=== PATIENT | male | born 1960 | race Caucasian/White ===

== ENCOUNTER → 2020-10-02 | Outpatient (CLI) | payer BC ==
[2020-10-02 17:42] LABS: Chol/HDL Ratio 2.71; LDL Cholesterol,Calculated 116.4 mg/dL (0.0-131.0); VLDL Calculation 18.6 mg/dL (5.00-40.00)
== END | disposition home or self-care (01) ==
LOC: LABWHC1 10:30
PROVIDERS: ATTEND Internal Medicine Cardiovascular Disease
DX: E78.2 Mixed hyperlipidemia (principal)
CPT/HCPCS: 36415; 80061; 84450; 84460

== ENCOUNTER 2021-10-27 16:37 | Inpatient (IN) | payer BC, MEDICARE, OTHER ==
--- NOTE | 2021-10-27 16:53 | ED ---
Chest Pain HPI - General Stated Complaint: V-Tach Time Seen by Provider: 10/27/21 16:39 - History of Present Illness Initial Comments: This patient is a 61-year-old man who arrives here by ambulance to have evaluation for his defibrillator going off. The patient states it has shocked him total of 7 times today. Patient reports that he was doing reasonably well prior to the start of that. He states that he did have a little bit of lightheadedness earlier in the day with activity. He was not having chest pains, dyspnea, diaphoresis, nausea or vomiting. As the defibrillator Going off he called EMS and they brought him here. He does state that he ran out of his medications approximately 14-15 days ago so he has not taken his cardiac medication. Patient has history of vessel CABG in approximately 2003 he believes in [place]. Currently smoking approximately one pack per day MD Complaint: chest pain -: hour(s) Onset: during rest Pain Location: substernal Pain Radiation: none Severity: severe Quality: sharp Consistency: intermittent Improves With: nothing Worsens With: nothing Treatments Prior to Arrival: none - Related Data Home Medications Medication Instructions Recorded Confirmed Atorvastatin [Lipitor] 40 mg PO DAILY 10/27/21 10/27/21 Metoprolol Succinate (ER) [Toprol 25 mg PO DAILY 10/27/21 10/27/21 Xl] Omeprazole [PriLOSEC] 40 mg PO DAILY 10/27/21 10/27/21 Allergies Allergy/AdvReac Type Severity Reaction Status Date / Time No Known Allergies Allergy Verified 10/27/21 18:31 Review of Systems ROS Statement: Those systems with pertinent positive or pertinent negative responses have been documented in the HPI. ROS Other: All systems not noted in ROS Statement are negative. Constitutional: Denies: fever, chills Respiratory: Denies: cough, dyspnea Cardiovascular: Reports: as per HPI, chest pain. Denies: palpitations, orthopnea, edema, syncope Gastrointestinal: Denies: abdominal pain, nausea, vomiting, melena, hematochezia Genitourinary: Denies: dysuria, hematuria Musculoskeletal: Denies: back pain Skin: Denies: rash Neurological: Denies: headache, weakness EKG Findings - EKG Results: EKG: sinus rhythm (With frequent PVCs, rate 70 bpm) - TX, Pacemaker, Normal: Myocardial infarction: inferior TX (old age indeterminate) General Exam General appearance: alert, in no apparent distress Head exam: Present: atraumatic, normocephalic Eye exam: Present: normal appearance. Absent: scleral icterus, conjunctival injection Neck exam: Present: normal inspection Respiratory exam: Present: normal lung sounds bilaterally. Absent: respiratory distress, wheezes, rales, rhonchi, stridor Cardiovascular Exam: Present: regular rate, normal rhythm, normal heart sounds. Absent: systolic murmur, diastolic murmur, rubs, gallop GI/Abdominal exam: Present: soft. Absent: distended, tenderness, guarding, rebound Extremities exam: Present: normal inspection, normal capillary refill. Absent: pedal edema, calf tenderness Back exam: Present: normal inspection. Absent: CVA tenderness (R), CVA tenderness (L) Neurological exam: Present: alert Skin exam: Present: warm, dry, intact, normal color. Absent: rash Course Vital Signs 10/27/21 10/27/21 10/27/21 16:39 16:44 17:00 Temperature 97.6 F Pulse Rate 60 77 63 Pulse Rate [ Pulse Oximetery ] Respiratory 18 18 18 Rate Blood Pressure 120/84 120/84 136/84 Blood Pressure [Right Arm] O2 Sat by Pulse 92 L 92 L 95 Oximetry 10/27/21 10/27/21 10/27/21 17:10 17:30 21:07 Temperature Pulse Rate 65 59 L 62 Pulse Rate [ Pulse Oximetery ] Respiratory 18 18 15 Rate Blood Pressure 112/81 116/80 127/65 Blood Pressure [Right Arm] O2 Sat by Pulse 94 L 98 Oximetry 10/27/21 10/27/21 22:20 22:50 Temperature 98.1 F Pulse Rate Pulse Rate [ 47 L 49 L Pulse Oximetery ] Respiratory 15 Rate Blood Pressure Blood Pressure 134/67 [Right Arm] O2 Sat by Pulse 97 Oximetry Disposition Clinical Impression: Ventricular tachycardia, Defibrillator discharge Disposition: ADMITTED IP TO THIS HOSP Condition: Serious Is patient prescribed a controlled substance at d/c from ED?: No
[2021-10-27 16:59] LABS: Basophils # (A) 0.1 k/uL (0-0.2); Basophils % (A) 1 %; Eosinophils # (A) 0.2 k/uL (0-0.7); Eosinophils % (A) 3 %; HCT 50.7 % (39.0-53.0); HGB 16.6 gm/dL (13.0-17.5); Lymphocytes # (A) 1.6 k/uL (1.0-4.8); Lymphocytes % (A) 21 %; MCH 34.7 pg (25.0-35.0); MCHC 32.8 g/dL (31.0-37.0); MCV 105.7 fL (80.0-100.0); Macrocytosis Slight; Mean Platelet Volume 7.9; Monocytes # (A) 0.4 k/uL (0-1.0); Monocytes % (A) 6 %; Neutrophils # (A) 5.2 k/uL (1.3-7.7); Neutrophils % (A) 68 %; Platelet Count 241 k/uL (150-450); RDW 12.9 % (11.5-15.5); WBC 7.6 k/uL (3.8-10.6)
--- NOTE | 2021-10-27 17:14 | XR ---
EXAMINATION TYPE: XR chest 1V portable DATE OF EXAM: 10/27/2021 COMPARISON: NONE HISTORY: Dysrhythmia TECHNIQUE: Angled FINDINGS: Heart size is normal. There are sternal wires. There is slight elevated left diaphragm. The re is left axillary pacemaker. There are no hilar masses. There is some spurring at the left shoulder joint. There is no heart failure. IMPRESSION: There is mild elevation of the left diaphragm and minimal subsegmental atelectasis left l ana base. No heart failure seen. There is COPD.
[2021-10-27 17:15] LABS: Partial Thromboplastin Time 22.2 sec (22.0-30.0)
[2021-10-27 17:25] LABS: ALT 22 U/L (4-49); AST 47 U/L (17-59); African American GFR (CKD) >90 (>60 ml/min/1.73 sqM); Albumin 4.4 g/dL (3.5-5.0); Alkaline Phosphatase 39 U/L (38-126); Anion Gap 12 mmol/L; Blood Urea Nitrogen 11 mg/dL (9-20); Calcium 9.6 mg/dL (8.4-10.2); Carbon Dioxide 24 mmol/L (22-30); Chloride 105 mmol/L (98-107); Glucose 97 mg/dL (74-99); Magnesium 1.7 mg/dL (1.6-2.3); Non-African American GFR(CKD) 88 (>60 ml/min/1.73 sqM); Potassium 4.1 mmol/L (3.5-5.1); Sodium 141 mmol/L (137-145); Total Bilirubin 0.5 mg/dL (0.2-1.3); Total Protein 6.8 g/dL (6.3-8.2)
[2021-10-27] MEDS ORDERED: DEXTROSE 5% IN WATER 250 ML with AMIODARONE 300 MG IV ONE (17:30)
[2021-10-27 18:02] LABS: Appearance,Urine Clear (Clear); Bilirubin,Urine Negative (Negative); Blood,Urine Negative (Negative); Color,Urine Yellow; Glucose,Urine (UA) Negative (Negative); Hyaline Casts,Urine 1 /lpf (0-2); Ketones,Urine 1+ (Negative); Leukocyte Esterase,Urine Trace (Negative); Mucus,Urine Occasional /hpf; Nitrite,Urine Negative (Negative); PH, Urine 6.5 (5.0-8.0); Protein,Urine 1+ (Negative); RBC,Urine 1 /hpf (0-5); Specific Gravity,Urine 1.021 (1.001-1.035); Urobilinogen,Urine <2.0 mg/dL (<2.0); WBC,Urine 3 /hpf (0-5)
[2021-10-27] MEDS ORDERED: HEPARIN SODIUM 1,000 UN/ML (10ML VL) IV PRN (19:04)
[2021-10-27] MEDS ORDERED: HEPARIN SODIUM 1,000 UN/ML (10ML VL) IV ONE (19:04)
[2021-10-27] MEDS ORDERED: METOPROLOL TARTRATE 25 MG TAB PO STA (19:10)
[2021-10-27] MEDS ORDERED: MAGNESIUM SULFATE-D5W PMX 1 GM in DEXTROSE/WATER 1 100ML.BAG IVPB ONE (19:10)
[2021-10-27] MEDS ORDERED: NITROGLYCERIN SL TABS 0.4 MG TAB SUBLINGUAL PRN (19:12)
[2021-10-27] MEDS ORDERED: MORPHINE SULFATE 4 MG/ML SYRINGE IV PRN (19:12)
[2021-10-27] MEDS: HEPARIN SOD,PORK IN 0.45% NACL 25,000 UNIT in 0.45% NACL 1 250ML.BAG IV SCH (21:03)
[2021-10-27] MEDS: SODIUM CHLORIDE 0.9% 1,000 ML IV SCH (21:07)
[2021-10-28] MEDS: SODIUM CHLORIDE 0.9% 1,000 ML IV SCH ×2 (03:37→17:00)
[2021-10-28 08:33] LABS: Basophils # (A) 0.1 k/uL (0-0.2); Basophils % (A) 1 %; Eosinophils # (A) 0.2 k/uL (0-0.7); Eosinophils % (A) 3 %; HCT 49.4 % (39.0-53.0); HGB 16.2 gm/dL (13.0-17.5); Lymphocytes # (A) 1.7 k/uL (1.0-4.8); Lymphocytes % (A) 22 %; MCH 34.8 pg (25.0-35.0); MCHC 32.7 g/dL (31.0-37.0); MCV 106.3 fL (80.0-100.0); Macrocytosis Moderate; Mean Platelet Volume 8.3; Monocytes # (A) 0.5 k/uL (0-1.0); Monocytes % (A) 7 %; Neutrophils # (A) 5.1 k/uL (1.3-7.7); Neutrophils % (A) 66 %; Platelet Count 221 k/uL (150-450); RBC 4.65 m/uL (4.30-5.90); RDW 12.7 % (11.5-15.5); WBC 7.8 k/uL (3.8-10.6)
[2021-10-28 08:57] LABS: INR 0.9 (<1.2); Prothrombin Time 10.4 sec (9.0-12.0)
[2021-10-28] MEDS ORDERED: METOPROLOL TARTRATE 25 MG TAB PO SCH (09:00)
[2021-10-28] MEDS ORDERED: ASPIRIN 325 MG TAB PO SCH (09:00)
[2021-10-28] MEDS: ATORVASTATIN 80 MG TAB PO SCH (09:43)
--- NOTE | 2021-10-28 10:48 | P.CRDCN ---
History of Present Illness History of present illness: HISTORY OF PRESENTING ILLNESS This is a pleasant 61-year-old male past medical history significant for coronary artery disease s/p CABG in 2005 ([place]O to LAD, VG to obtuse marginal branch of the LCx, VG to distal RCA/PDA), V fib arrest s/p ICD implantation in 2019, hypertension, dyslipidemia, ischemic cardiomyopathy, congestive heart failure . He follows in the office with Dr. So. We have been asked to see in consultation for tachyarrhythmia. Patient presents emergency department after multiple ICD shocks. Patient states he is moving to [place] and was packing at home. He was sitting down and all of a sudden felt shock in his chest. He did endorse some lightheadedness in the morning. Prior to the shock he denies any chest pain, palpitations, shortness of breath, lightheadedness or dizziness. He states he felt his ICD shock him multiple times. He denies any recent changes to his medications or medical history. He continues to smoke 1PPD. DIAGNOSTICS * EKG reveals sinus rhythm, heart rate 70, PVCs, T-wave inversions in inferior leads. Prior EKG in the office with similar findings. * Telemetry tracings indicate sinus rhythm with episodes of nonsustained ventricular tachycardia. * Chest xray COPD, mild elevation of the left diaphragm. * Most recent echocardiogram in the office here 10/2020 with EF of 25%, inferior AK, severely dilated left atrium, moderate mitral regurgitation, moderate tricuspid regurgitation * Laboratory reviewed, CBC unremarkable, troponin 3, 15, 13.9, sodium 141, potassium 4.1, BUN 11, serum creatinine 0.9 * Cardiac catheterization 04/2019 revealed patent [place]O to LAD, patent vein graft obtuse marginal branch and left circumflex artery and patent vein graft to distal RCA/PDA, severely reduced left ventricular systolic function with an EF of 30% stenosis with akinesis of the basal. Segment. Mild distal stenosis of the left main coronary artery 2030% stenosis * Current home cardiac medications include metoprolol succinate 20 mg daily, vane rvastatin 40 mg daily. REVIEW OF SYSTEMS At the time of my exam: CONSTITUTIONAL: Denies fever or chills. CARDIOVASCULAR: Denies chest pain, shortness of breath, orthopnea, PND or palpitations. RESPIRATORY: Denies cough. GASTROINTESTINAL: Denies abdominal pain, diarrhea, constipation, nausea or vo miting. MUSCULOSKELETAL: Denies myalgias. NEUROLOGIC: Denies numbness, tingling, headacbe or weakness. ENDOCRINE: Denies fatigue, weight change, polydipsia or polyurina. GENITOURINARY: Denies burning, hematuria or urgency with micturation. HEMATOLOGIC: Denies history of anemia or bleeding. PHYSICAL EXAMINATION Blood pressure 118/67, heart rate 53, afebrile, oxygen saturation 96% on 2 L nasal cannula CONSTITUTIONAL: No apparent distress. HEENT: Head is normocephalic. Pupils are equal, round. Sclerae anicteric. Mucous membranes of the mouth are moist. No JVD. No carotid bruit. CHEST EXAMINATION: Lungs are clear to auscultation. No chest wall tenderness is noted on palpation or with deep breathing. HEART EXAMINATION: Regular rate and rhythm. S1, S2 heard. Systolic murmur at base. ABDOMEN: Soft, nontender. Positive bowel sounds. EXTREMITIES: 2+ peripheral pulses, no lower extremity edema and no calf tenderness. NEUROLOGIC EXAMINATION: Patient is awake, alert and oriented x3. ASSESSMENT Multiple ICD shocks NSVT NSTEMI Coronary artery disease s/p CABG in 2005 ([place] to LAD, VG to obtuse marginal branch of the LCx, VG to distal RCA/PDA) History of V fib arrest s/p ICD implantation in 2019 Hypertension Dyslipidemia Ischemic cardiomyopathy Chronic congestive heart failure with reduced ejection fraction PLAN Interrogate patient's device IV heparin Aspirin, statin, beta radha Obtain 2D echocardiogram and doppler study to assess cardiac structure and function. NPO after midnight for possible cardiac catheterization tomorrow. I have discussed the risks, benefits and alternative therapies for the above- mentioned procedure and for both sedation/analgesia as well as necessary blood product administration, if indicated, as they pertain to this patient. The patient has indicated understanding and acceptance of the risks and procedures discussed. Questions have been answered appropriately and he is agreeable to move forward with the above-stated procedure. Further recommendations and clinical course Nurse practitioner note has been reviewed by physician. Signing provider agrees with the documented findings, assessment, and plan of care. Past Medical History Past Medical History: Coronary Artery Disease (CAD), Hyperlipidemia, Hypertension, Myocardial Infarction (AK) Last Myocardial Infarction Date:: 2019 History of Any Multi-Drug Resistant Organisms: None Reported Past Surgical History: AICD, Coronary Bypass/CABG, Hernia Repair, Pacemaker Additional Past Surgical History / Comment(s): triple bypass Past Anesthesia/Blood Transfusion Reactions: No Reported Reaction Type of Cardiac Device: Permanent Pacemaker, AICD Device Placement Date:: 2019 Past Psychological History: No Psychological Hx Reported Smoking Status: Current every day smoker Past Alcohol Use History: None Reported Past Drug Use History: None Reported Medications and Allergies Home Medications Medication Instructions Recorded Confirmed Type Atorvastatin [Lipitor] 40 mg PO DAILY 10/27/21 10/27/21 History Metoprolol Succinate (ER) [Toprol 25 mg PO DAILY 10/27/21 10/27/21 History Xl] Omeprazole [PriLOSEC] 40 mg PO DAILY 10/27/21 10/27/21 History Allergies Allergy/AdvReac Type Severity Reaction Status Date / Time No Known Allergies Allergy Verified 10/27/21 18:31 Physical Exam Vitals: Vital Signs Temp Pulse Pulse Resp BP BP Pulse Ox 10/28/21 04:00 18 114/78 96 10/28/21 01:55 48 L 10/27/21 23:10 97.9 F 51 L 16 111/74 98 10/27/21 22:50 49 L 10/27/21 22:20 98.1 F 47 L 15 134/67 97 10/27/21 21:07 62 15 127/65 98 10/27/21 17:30 59 L 18 116/80 10/27/21 17:10 65 18 112/81 94 L 10/27/21 17:00 63 18 136/84 95 10/27/21 16:44 77 18 120/84 92 L 10/27/21 16:39 97.6 F 60 18 120/84 92 L Intake and Output 10/27/21 10/28/21 10/28/21 22:59 06:59 14:59 Intake Total 222.358 Balance 222.358 Intake: Intake, IV Titration 222.358 Amount Heparin Sod,Pork in 0.45% 47.358 NaCl 25,000 unit In 0.45 % NaCl 1 250ml.bag @ 12 UNITS/KG/HR 7.893 mls/hr IV .Q24H [facility] Rx#: [id number] Magnesium Sulfate-D5w Pmx 100 1 gm In Dextrose/Water 1 100ml.bag @ 100 mls/hr IVPB ONCE ONE Rx#: [id number] Sodium Chloride 0.9% 1, 75 000 ml @ 75 mls/hr IV . [id number] [facility] Rx#:[id number] Oral 0 Other: # Voids 1 Weight 65.771 kg Results 10/28/21 07:31 10/27/21 16:52 Cardiac Enzymes 10/27/21 10/27/21 10/27/21 Range/Units 16:52 16:52 21:10 AST 47 (17-59) U/L Troponin I 3.060 H* 15.500 H* (0.000-0.034) ng/mL 10/28/21 Range/Units 00:45 AST (17-59) U/L Troponin I 13.900 H* (0.000-0.034) ng/mL Coagulation 10/27/21 10/28/21 Range/Units 16:52 00:45 PT 11.0 (9.0-12.0) sec APTT 22.2 44.4 H (22.0-30.0) sec CBC 10/27/21 Range/Units 16:52 WBC 7.6 (3.8-10.6) k/uL RBC 4.80 (4.30-5.90) m/uL Hgb 16.6 (13.0-17.5) gm/dL Hct 50.7 (39.0-53.0) % Plt Count 241 (150-450) k/uL Comprehensive Metabolic Panel 10/27/21 Range/Units 16:52 Sodium 141 (137-145) mmol/L Potassium 4.1 (3.5-5.1) mmol/L Chloride 105 (98-107) mmol/L Carbon Dioxide 24 (22-30) mmol/L BUN 11 (9-20) mg/dL Creatinine 0.93 (0.66-1.25) mg/dL Glucose 97 (74-99) mg/dL Calcium 9.6 (8.4-10.2) mg/dL AST 47 (17-59) U/L ALT 22 (4-49) U/L Alkaline Phosphatase 39 (38-126) U/L Total Protein 6.8 (6.3-8.2) g/dL Albumin 4.4 (3.5-5.0) g/dL Current Medications Generic Name Dose Route Start Last Admin Trade Name Freq PRN Reason Stop Dose Admin Aspirin 325 mg 10/28/21 09:00 Aspirin 325 Mg Tab PO DAILY SANTANA Heparin Sodium (Porcine) 0 unit 10/27/21 19:04 Heparin Sodium 1,000 Un/Ml (10ml Vl) IV PER PROTOCOL PRN Low PTT Protocol Heparin Sodium/Sodium Chloride 250 mls @ 7.893 mls/hr 10/27/21 19:15 10/27/21 21:03 25,000 unit/ Sodium Chloride IV 12 units/kg/hr .Q24H SANTANA 7.893 mls/hr Administration Protocol 12 UNITS/KG/HR Sodium Chloride 1,000 mls @ 75 mls/hr 10/27/21 19:15 10/28/21 03:37 Saline 0.9% IV 75 mls/hr .[id number] SANTANA Administration Metoprolol Tartrate 25 mg 10/28/21 09:00 Metoprolol Tartrate 25 Mg Tab PO BID [facility] Morphine Sulfate 4 mg 10/27/21 19:12 Morphine Sulfate 4 Mg/Ml Syringe IV Q5M PRN Chest Pain Nitroglycerin 0.4 mg 10/27/21 19:12 Nitroglycerin Sl Tabs 0.4 Mg Tab SUBLINGUAL Q5M PRN Chest Pain Intake and Output 10/27/21 10/28/21 10/28/21 22:59 06:59 14:59 Intake Total 222.358 Balance 222.358 Intake: Intake, IV Titration 222.358 Amount Heparin Sod,Pork in 0.45% 47.358 NaCl 25,000 unit In 0.45 % NaCl 1 250ml.bag @ 12 UNITS/KG/HR 7.893 mls/hr IV .Q24H [facility] Rx#: [id number] Magnesium Sulfate-D5w Pmx 100 1 gm In Dextrose/Water 1 100ml.bag @ 100 mls/hr IVPB ONCE ONE Rx#: [id number] Sodium Chloride 0.9% 1, 75 000 ml @ 75 mls/hr IV . [id number] [facility] Rx#:[id number] Oral 0 Other: # Voids 1 Weight 65.771 kg 10/27/21 16:52 10/27/21 16:52
[2021-10-28 10:53] LABS: Chol/HDL Ratio 3.88 Ratio; LDL Cholesterol,Calculated 107.9 mg/dL (0.0-131.0)
[2021-10-28] MEDS ORDERED: ACETAMINOPHEN TAB 325 MG TAB PO PRN (10:59)
--- NOTE | 2021-10-28 11:10 | P.HPIM ---
History of Present Illness H&P Date: 10/28/21 Chief Complaint: AICD firing History of present illness; Patient is a pleasant 61-year-old male past medical history significant for coronary artery disease s/p CABG in 2005 ([place] to LAD, VG to obtuse marginal branch of the LCx, VG to distal RCA/PDA), V fib arrest s/p ICD implantation in 2019, hypertension, dyslipidemia, ischemic cardiomyopathy, congestive heart failure who presented to the ER because of multiple AICD shocks since yesterday. Patient was in usual state of health yesterday morning when he noticed that his AICD fired after breakfast, it was followed by multiple frequent shocks. During these episodes patient did not have any lightheadedness or dizziness, denied any chest pain or shortness of breath. In total he had 5 shocks followed by another 2 shocks in the afternoon. At that time his friend called EMS and he was terry t to the ER of [facility]. Initial troponin was elevated at 3.060, rest of blood work was normal, chest x-ray did not show any acute cardiac process. Patient was started on heparin and was admitted to hospitalist service with cardiology consult. REVIEW OF SYSTEMS: CONSTITUTIONAL: No fever, no malaise, no fatigue. HEENT: No recent visual problems or hearing problems. Denied any sore throat. CARDIOVASCULAR: No chest pain, orthopnea, PND, no palpitations, no syncope. PULMONARY: No shortness of breath, no cough, no hemoptysis. GASTROINTESTINAL: No diarrhea, no nausea, no vomiting, no abdominal pain. NEUROLOGICAL: No headaches, no weakness, no numbness. HEMATOLOGICAL: Denies any bleeding or petechiae. GENITOURINARY: Denies any burning micturition, frequency, or urgency. MUSCULOSKELETAL/RHEUMATOLOGICAL: Denies any joint pain, swelling, or any muscle pain. ENDOCRINE: Denies any polyuria or polydipsia. The rest of the 14-point review of systems is negative. PHYSICAL EXAMINATION: GENERAL: The patient is alert and oriented x3, not in any acute distress. Well developed, well nourished. HEENT: Pupils are round and equally reacting to light. EOMI. No scleral icterus. No conjunctival pallor. Normocephalic, atraumatic. No pharyngeal erythema. No thyromegaly. CARDIOVASCULAR: S1 and S2 present. No murmurs, rubs, or gallops. PULMONARY: Chest is clear to auscultation, no wheezing or crackles. ABDOMEN: Soft, nontender, nondistended, normoactive bowel sounds. No palpable organomegaly. MUSCULOSKELETAL: No joint swelling or deformity. EXTREMITIES: No cyanosis, clubbing, or pedal edema. NEUROLOGICAL: Gross neurological examination did not reveal any focal deficits. SKIN: No rashes. Assessment Multiple AICD shocks NSTEMI Coronary artery disease s/p CABG in 2005 ([place] to LAD, VG to obtuse marginal branch of the LCx, VG to distal RCA/PDA) History of V fib arrest s/p ICD implantation in 2019 Hypertension Dyslipidemia Ischemic cardiomyopathy Chronic congestive heart failure with reduced ejection fraction Plan; Monitor electrolytes. Moderate renal functions Continue to trend troponins. Continue pharmacy to dose heparin 2-D echo ordered Resume home meds Cardiology consulted, they evaluated the patient, plan is for the patient to undergo cardiac cath tomorrow, nothing by mouth after midnight Continue aspirin, Lipitor, Toprol AICD interrogation ordered DVT prophylaxis: Pharmacy dose heparin Full code Past Medical History Past Medical History: Coronary Artery Disease (CAD), Hyperlipidemia, Hypertension, Myocardial Infarction ([place]) Last Myocardial Infarction Date:: 2019 History of Any Multi-Drug Resistant Organisms: None Reported Past Surgical History: AICD, Coronary Bypass/CABG, Hernia Repair, Pacemaker Additional Past Surgical History / Comment(s): triple bypass Past Anesthesia/Blood Transfusion Reactions: No Reported Reaction Type of Cardiac Device: Permanent Pacemaker, AICD Device Placement Date:: 2019 Past Psychological History: No Psychological Hx Reported Smoking Status: Current every day smoker Past Alcohol Use History: None Reported Past Drug Use History: None Reported Medications and Allergies Home Medications Medication Instructions Recorded Confirmed Type Atorvastatin [Lipitor] 40 mg PO DAILY 10/27/21 10/27/21 History Metoprolol Succinate (ER) [Toprol 25 mg PO DAILY 10/27/21 10/27/21 History Xl] Omeprazole [PriLOSEC] 40 mg PO DAILY 10/27/21 10/27/21 History Allergies Allergy/AdvReac Type Severity Reaction Status Date / Time No Known Allergies Allergy Verified 10/27/21 18:31 Physical Exam Vitals: Vital Signs Temp Pulse Pulse Resp BP BP Pulse Ox 10/28/21 08:14 44 L 10/28/21 08:10 47 L 10/28/21 07:49 97.7 F 53 L 16 118/67 10/28/21 04:00 18 114/78 96 10/28/21 01:55 48 L 10/27/21 23:10 97.9 F 51 L 16 111/74 98 10/27/21 22:50 49 L 10/27/21 22:20 98.1 F 47 L 15 134/67 97 10/27/21 21:07 62 15 127/65 98 10/27/21 17:30 59 L 18 116/80 10/27/21 17:10 65 18 112/81 94 L 10/27/21 17:00 63 18 136/84 95 10/27/21 16:44 77 18 120/84 92 L 10/27/21 16:39 97.6 F 60 18 120/84 92 L Intake and Output 10/27/21 10/28/21 10/28/21 22:59 06:59 14:59 Intake Total 222.358 Balance 222.358 Intake: Intake, IV Titration 222.358 Amount Heparin Sod,Pork in 0.45% 47.358 NaCl 25,000 unit In 0.45 % NaCl 1 250ml.bag @ 12 UNITS/KG/HR 7.893 mls/hr IV .Q24H [facility] Rx#: [id number] Magnesium Sulfate-D5w Pmx 100 1 gm In Dextrose/Water 1 100ml.bag @ 100 mls/hr IVPB ONCE ONE Rx#: [id number] Sodium Chloride 0.9% 1, 75 000 ml @ 75 mls/hr IV . [id number] [facility] Rx#:[id number] Oral 0 Other: Voiding Method Toilet # Voids 1 Weight 65.771 kg Results CBC & Chem 7: 10/28/21 07:31 10/27/21 16:52 Labs: Abnormal Lab Results - Last 24 Hours (Table) 10/27/21 10/27/21 10/27/21 Range/Units 16:52 16:52 16:52 MCV 105.7 H (80.0-100.0) fL APTT (22.0-30.0) sec Troponin I 3.060 H* (0.000-0.034) ng/mL Urine Protein 1+ H (Negative) Urine Ketones 1+ H (Negative) Ur Leukocyte Esterase Trace H (Negative) Urine Mucus Occasional H (None) /hpf 09/13/22 09/14/22 09/14/22 Range/Units 21:10 00:45 00:45 MCV (80.0-100.0) fL APTT 44.4 H (22.0-30.0) sec Troponin I 15.500 H* 13.900 H* (0.000-0.034) ng/mL Urine Protein (Negative) Urine Ketones (Negative) Ur Leukocyte Esterase (Negative) Urine Mucus (None) /hpf 10/28/21 Range/Units 07:31 MCV 106.3 H (80.0-100.0) fL APTT (22.0-30.0) sec Troponin I (0.000-0.034) ng/mL Urine Protein (Negative) Urine Ketones (Negative) Ur Leukocyte Esterase (Negative) Urine Mucus (None) /hpf Thrombosis Risk Factor Assmnt - Choose All That Apply Any of the Below Risk Factors Present?: No Each Risk Factor Represents 2 Points: Age 61-74 years Other congenital or acquired thrombophilia - If yes, enter type in comment: No Thrombosis Risk Factor Assessment Total Risk Factor Score: 2 Thrombosis Risk Factor Assessment Level: Low Risk
[2021-10-28] MEDS: METOPROLOL SUCCINATE (ER) 25 MG TAB.ER.24H PO SCH (12:37)
[2021-10-28] MEDS: PANTOPRAZOLE 40 MG TABLET PO SCH (12:37)
--- NOTE | 2021-10-28 14:32 | CA ---
Transthoracic Echo Report Name: Mikal Barros Age: 61 Gender: M : 1960 Exam Date: 10/28/2021 09:04 Exam Location: [facility] Ht (in): 66 Wt (lb): 145 Ordering Physician: Brenda Dinh Attending/Referring Phys: Certified Registered Nurse Anesthetist [address] RDCS Procedure CPT: Indications: elevated troponin, Defib shocks, NSTEMI Cardiac Hx: Technical Quality: Good Contrast 1: Total Dose (mL): Contrast 2: Total Dose (mL): MEASUREMENTS (Male / Female) Normal Values 2D ECHO LV Diastolic Diameter PLAX 5.7 cm 4.2 - 5.9 / 3.9 - 5.3 cm LV Systolic Diameter PLAX 5.1 cm IVS Diastolic Thickness 1.1 cm 0.6 - 1.0 / 0.6 - 0.9 cm LVPW Diastolic Thickness 1.0 cm 0.6 - 1.0 / 0.6 - 0.9 cm LV Relative Wall Thickness 0.4 RV Internal Dim ED PLAX 2.9 cm LA Systolic Diameter LX 4.2 cm 3.0 - 4.0 / 2.7 - 3.8 cm LA Volume 69.1 cm??? 18 - 58 / 22 - 52 cm??? M-MODE Aortic Root Diameter MM 3.3 cm MV E Point Septal Separation 1.6 cm AV Cusp Separation MM 1.9 cm DOPPLER AV Peak Velocity 143.2 cm/s AV Peak Gradient 8.2 mmHg MV Area PHT 1.9 cm??? Mitral E Point Velocity 48.6 cm/s Mitral A Point Velocity 35.7 cm/s Mitral E to A Ratio 1.4 MV Deceleration Time 397.0 ms MV E' Velocity 6.2 cm/s Mitral E to MV E' Ratio 7.8 TR Peak Velocity 262.9 cm/s TR Peak Gradient 27.6 mmHg Right Ventricular Systolic Press 31.4 mmHg FINDINGS Left Ventricle Left ventricular ejection fraction is estimated at 20-25 %. Left ventricular cavity size normal. Left ventricular wall thickness normal. Moderately reduced global left ventricular systolic function. Inferior basel wall and basel infero septal wall hypokinesis Right Ventricle Normal right ventricular size and function. Right Atrium Normal right atrial size. Left Atrium Mildly increased left atrial diameter. Moderately increased left atrial volume. No evidence for an atrial septal defect. Mitral Valve Mitral valve thickened. Trace to mild mitral regurgitation. Aortic Valve Trileaflet aortic valve. No aortic valve stenosis or regurgitation. Tricuspid Valve Mild tricuspid regurgitation. Pulmonic Valve Structurally normal pulmonic valve. Pericardium Normal pericardium. No pericardial effusion. Aorta Normal size aortic root and proximal ascending aorta. CONCLUSIONS Dilated left ventricle with severe LV dysfunction Previewed by: Dr. Kvng Weir MD (Electronically Signed) Final Date: 28 October 2021 12:09
[2021-10-29] MEDS: SODIUM CHLORIDE 0.9% 1,000 ML IV SCH (04:25)
[2021-10-29] MEDS: PANTOPRAZOLE 40 MG TABLET PO SCH (06:28)
[2021-10-29] MEDS: HEPARIN SOD,PORK IN 0.45% NACL 25,000 UNIT in 0.45% NACL 1 250ML.BAG IV SCH (06:36)
[2021-10-29] MEDS ORDERED: SODIUM CHLORIDE 0.9% 1,000 ML in EMPTY BAG 1 BAG IV ONE (07:50)
[2021-10-29] MEDS ORDERED: ALPRAZolam 0.25 MG TAB PO PRN (07:50)
[2021-10-29] MEDS ORDERED: ALPRAZolam 0.5 MG TAB PO PRN (07:50)
[2021-10-29] MEDS ORDERED: ASPIRIN 325 MG TAB PO STA (07:50)
[2021-10-29] MEDS: ASPIRIN 81 MG PO SCH (08:52)
[2021-10-29 09:03] LABS: Basophils # (A) 0.1 k/uL (0-0.2); Basophils % (A) 1 %; Eosinophils # (A) 0.2 k/uL (0-0.7); Eosinophils % (A) 4 %; HCT 46.8 % (39.0-53.0); HGB 15.2 gm/dL (13.0-17.5); Lymphocytes # (A) 1.4 k/uL (1.0-4.8); Lymphocytes % (A) 22 %; MCHC 32.5 g/dL (31.0-37.0); MCV 107.6 fL (80.0-100.0); Macrocytosis Moderate; Mean Platelet Volume 8.4; Monocytes # (A) 0.4 k/uL (0-1.0); Monocytes % (A) 6 %; Neutrophils # (A) 4.2 k/uL (1.3-7.7); Neutrophils % (A) 65 %; Platelet Count 205 k/uL (150-450); RBC 4.35 m/uL (4.30-5.90); RDW 13.1 % (11.5-15.5); WBC 6.4 k/uL (3.8-10.6)
[2021-10-29] MEDS: ATORVASTATIN 80 MG TAB PO SCH (09:06)
[2021-10-29] MEDS: METOPROLOL SUCCINATE (ER) 25 MG TAB.ER.24H PO SCH (09:06)
[2021-10-29 09:40] LABS: ALT 18 U/L (4-49); AST 41 U/L (17-59); African American GFR (CKD) >90 (>60 ml/min/1.73 sqM); Albumin 3.1 g/dL (3.5-5.0); Alkaline Phosphatase 32 U/L (38-126); Anion Gap 5 mmol/L; Blood Urea Nitrogen 8 mg/dL (9-20); Calcium 8.3 mg/dL (8.4-10.2); Carbon Dioxide 26 mmol/L (22-30); Chloride 108 mmol/L (98-107); Glucose 89 mg/dL (74-99); Non-African American GFR(CKD) >90 (>60 ml/min/1.73 sqM); Potassium 3.9 mmol/L (3.5-5.1); Sodium 139 mmol/L (137-145); Total Bilirubin 0.5 mg/dL (0.2-1.3); Total Protein 5.1 g/dL (6.3-8.2)
[2021-10-29] MEDS ORDERED: fentaNYL (PF) 50 MCG/ML 2 ML AMP ONE (11:32)
[2021-10-29] MEDS ORDERED: VERAPAMIL 2.5 MG/ML 2 ML AMP ONE (11:33)
[2021-10-29] MEDS ORDERED: IV FLUID CONTINUATION 1,000 ML IV ONE (11:35)
--- NOTE | 2021-10-29 11:52 | P.PN ---
Subjective This is a pleasant 61-year-old male past medical history significant for coronary artery disease s/p CABG in 2005 (DELGADILLO to LAD, VG to obtuse marginal branch of the LCx, VG to distal RCA/PDA), V fib arrest s/p ICD implantation in 2019, hypertension, dyslipidemia, ischemic cardiomyopathy, congestive heart failure . He follows in the office with Dr. So. We have been asked to see in consultation for tachyarrhythmia. Patient presents emergency department after multiple ICD shocks. Patient states he is moving to [place] and was packing at home. He was sitting down and all of a sudden felt shock in his chest. He did endorse some lightheadedness in the morning. Prior to the shock he denies any chest pain, palpitations, shortness of breath, lightheadedness or dizziness. He states he felt his ICD shock him multiple times. He denies any recent changes to his medications or medical history. He continues to smoke 1PPD. 10/29/2021 Patient seen and examined at bedside, he is overall doing well. No complaints. No chest pain or shortness of breath. Device was interrogated that revealed V fib and Vtach with appropriate shocks Echocardiogram revealed an EF of 5 percent He's currently maintained on aspirin 81mg daily, atorvastatin 80 mg daily, IV heparin, metoprolol succinate 12.5 mg daily PHYSICAL EXAMINATION Blood pressure 130/60, heart rate 48, afebrile, saturations 95% room air CONSTITUTIONAL: No apparent distress. HEENT: Head is normocephalic. Pupils are equal, round. Sclerae anicteric. Mucous membranes of the mouth are moist. No JVD. No carotid bruit. CHEST EXAMINATION: Lungs are clear to auscultation. No chest wall tenderness is noted on palpation or with deep breathing. HEART EXAMINATION: Regular rate and rhythm. S1, S2 heard. Systolic murmur at base. ABDOMEN: Soft, nontender. Positive bowel sounds. EXTREMITIES: 2+ peripheral pulses, no lower extremity edema and no calf tenderness. NEUROLOGIC EXAMINATION: Patient is awake, alert and oriented x3. ASSESSMENT V fib and Vtach with appropriate ICD shocks NSVT NSTEMI Coronary artery disease s/p CABG in 2005 (DELGADILLO to LAD, VG to obtuse marginal branch of the LCx, VG to distal RCA/PDA) History of V fib arrest s/p ICD implantation in 2019 Hypertension Dyslipidemia Ischemic cardiomyopathy Chronic congestive heart failure with reduced ejection fraction PLAN Plan for cardiac catheterization with Dr. So today, patient is agreeable. Continue Aspirin, statin, beta radha I have discussed the risks, benefits and alternative therapies for the above-mentioned procedure and for both sedation/analgesia as well as necessary blood product administration, if indicated, as they pertain to this patient. The patient has indicated understanding and acceptance of the risks and procedures discussed. Questions have been answered appropriately and he is agreeable to move forward with the above-stated procedure. Further recommendations and clinical course Nurse practitioner note has been reviewed by physician. Signing provider agrees with the documented findings, assessment, and plan of care. Objective - Vital Signs Vital signs: Vital Signs Temp 97.2 F L 10/29/21 08:00 Pulse 48 L 10/29/21 08:00 Resp 14 10/29/21 08:00 BP 113/68 10/29/21 08:00 Pulse Ox 95 10/29/21 08:00 FiO2 Intake & Output 10/28/21 10/29/21 10/29/21 18:59 06:59 18:59 Intake Total 1200 250 Balance 1200 250 Intake: Intake, IV Titration 250 Amount Heparin Sod,Pork in 0.45% 250 NaCl 25,000 unit In 0.45 % NaCl 1 250ml.bag @ 12 UNITS/KG/HR 7.893 mls/hr IV .Q24H [facility] Rx#: [id number] Oral 1200 Other: Voiding Method Toilet Toilet Toilet # Voids 2 2 - Labs CBC & Chem 7: 10/29/21 08:12 10/29/21 08:12 Labs: Abnormal Lab Results - Last 24 Hours (Table) 10/29/21 10/29/21 10/29/21 Range/Units 08:12 08:12 08:12 MCV 107.6 H (80.0-100.0) fL APTT 34.6 H (22.0-30.0) sec Chloride 108 H (98-107) mmol/L BUN 8 L (9-20) mg/dL Calcium 8.3 L (8.4-10.2) mg/dL Alkaline Phosphatase 32 L (38-126) U/L Total Protein 5.1 L (6.3-8.2) g/dL Albumin 3.1 L (3.5-5.0) g/dL
[2021-10-29] MEDS ORDERED: MIDAZOLAM 2 MG/2 ML VIAL IV ONE (11:54)
[2021-10-29] MEDS ORDERED: fentaNYL (PF) 50 MCG/ML 2 ML AMP IV ONE (11:54)
[2021-10-29] MEDS ORDERED: LIDOCAINE 1% INJ 10MG/ML (30 ML VIAL-PF) SQ ONE (11:56)
[2021-10-29] MEDS ORDERED: IOPAMIDOL-370 125ML BTL INJ ONE (12:13)
--- NOTE | 2021-10-29 12:44 | P.PN ---
Subjective Progress Note Date: 10/29/21 Patient is a pleasant 61-year-old male past medical history significant for coronary artery disease s/p CABG in 2005 (DELGADILLO to LAD, VG to obtuse marginal branch of the LCx, VG to distal RCA/PDA), V fib arrest s/p ICD implantation in 2019, hypertension, dyslipidemia, ischemic cardiomyopathy, congestive heart failure who presented to the ER because of multiple AICD shocks since yesterday. Patient was in usual state of health yesterday morning when he noticed that his AICD fired after breakfast, it was followed by multiple frequent shocks. During these episodes patient did not have any lightheadedness or dizziness, denied any chest pain or shortness of breath. In total he had 5 shocks followed by another 2 shocks in the afternoon. At that time his friend called EMS and he was brought to the ER of [facility]. Initial troponin was elevated at 3.060, rest of blood work was normal, chest x-ray did not show any acute cardiac process. Patient was started on heparin and was admitted to hospitalist service with cardiology consult. 10/29. Patient seen and examined. No further episodes of chest pain, no episodes of AICD firing in the last 24 hours. Currently nothing by mouth going for cardiac cath today. Vital signs stable. case discussed with nursing staff REVIEW OF SYSTEMS: CONSTITUTIONAL: No fever, no malaise, no fatigue. CARDIOVASCULAR: No chest pain, orthopnea, PND, no palpitations, no syncope. PULMONARY: No shortness of breath, no cough, no hemoptysis. GASTROINTESTINAL: No diarrhea, no nausea, no vomiting, no abdominal pain. MUSCULOSKELETAL/RHEUMATOLOGICAL: Denies any joint pain, swelling, or any muscle pain. ENDOCRINE: Denies any polyuria or polydipsia. PHYSICAL EXAMINATION: GENERAL: The patient is alert and oriented x3, not in any acute distress. Well developed, well nourished. HEENT: Pupils are round and equally reacting to light. EOMI. No scleral icterus. No conjunctival pallor. Normocephalic, atraumatic. No pharyngeal erythema. No thyromegaly. CARDIOVASCULAR: S1 and S2 present. No murmurs, rubs, or gallops. PULMONARY: Chest is clear to auscultation, no wheezing or crackles. ABDOMEN: Soft, nontender, nondistended, normoactive bowel sounds. No palpable organomegaly. MUSCULOSKELETAL: No joint swelling or deformity. EXTREMITIES: No cyanosis, clubbing, or pedal edema. NEUROLOGICAL: Gross neurological examination did not reveal any focal deficits. SKIN: No rashes. Assessment Multiple AICD shocks NSTEMI Coronary artery disease s/p CABG in 2005 (DELGADILLO to LAD, VG to obtuse marginal branch of the LCx, VG to distal RCA/PDA) History of V fib arrest s/p ICD implantation in 2019 Hypertension Dyslipidemia Ischemic cardiomyopathy Chronic congestive heart failure with reduced ejection fraction Plan; Monitor electrolytes. Moderate renal functions Continue to trend troponins. Continue pharmacy to dose heparin Device was interrogated that revealed V fib and Vtach with appropriate shocks Echocardiogram revealed an EF of 2024 percent Continue aspirin, Lipitor, Toprol Currently nothing by mouth, going for cardiac catheterization today Follow up in cardiology recommendations DVT prophylaxis: Heparin Objective - Vital Signs Vital signs: Vital Signs Temp 97.9 F 10/29/21 12:09 Pulse 54 L 10/29/21 10:42 Resp 14 10/29/21 12:09 BP 117/70 10/29/21 12:09 Pulse Ox 95 10/29/21 12:09 FiO2 Intake & Output 10/28/21 10/29/21 10/29/21 18:59 06:59 18:59 Intake Total 1200 250 136.702 Output Total 200 Balance 1200 250 -63.298 Intake: IV 100 Intake, IV Titration 250 36.702 Amount Heparin Sod,Pork in 0.45% 250 36.702 NaCl 25,000 unit In 0.45 % NaCl 1 250ml.bag @ 12 UNITS/KG/HR 7.893 mls/hr IV .Q24H [facility] Rx#: [id number] Oral 1200 Output: Urine 200 Other: Voiding Method Toilet Toilet Toilet # Voids 2 2 - Labs CBC & Chem 7: 10/29/21 08:12 10/29/21 08:12 Labs: Abnormal Lab Results - Last 24 Hours (Table) 10/29/21 10/29/21 10/29/21 Range/Units 08:12 08:12 08:12 MCV 107.6 H (80.0-100.0) fL APTT 34.6 H (22.0-30.0) sec Chloride 108 H (98-107) mmol/L BUN 8 L (9-20) mg/dL Calcium 8.3 L (8.4-10.2) mg/dL Alkaline Phosphatase 32 L (38-126) U/L Total Protein 5.1 L (6.3-8.2) g/dL Albumin 3.1 L (3.5-5.0) g/dL
[2021-10-29] MEDS ORDERED: RX INFO: IV CONTRAST WAS GIVEN 1 EACH MISC MISCELLANE PRN (13:49)
[2021-10-29 15:41] LABS: Chol/HDL Ratio 3.65 Ratio; LDL Cholesterol,Calculated 98.6 mg/dL (0.0-131.0)
--- NOTE | 2021-10-29 22:54 | CC ---
CARDIAC CATHETERIZATION REPORT INDICATIONS FOR PROCEDURE: A 61-year-old gentleman with history of coronary artery disease, status post CABG with DELGADILLO to LAD, venous graft to PDA and OM, who presented to [facility] following AICD discharge for ventricular tachycardia and fibrillation. His troponins were elevated, due to which, I was asked to perform cardiac catheterization. PROCEDURE NOTE: After obtaining informed consent, left heart catheterization, coronary angiogram, and selective injection of the bypass grafts have been performed via the right femoral artery using standard Roberto catheters. The patient tolerated the procedure well without any obvious immediate complications. The patient received moderate conscious sedation. Total sedation time was 19 minutes. FINDINGS: 1. HEMODYNAMICS: Left ventricular end-diastolic pressure is 18 mmHg. There is no significant gradient across the aortic valve. 2. LEFT VENTRICULOGRAM: Left ventriculogram is not performed. 3. ANGIOGRAPHIC DATA: a.Right coronary artery: Right coronary artery is totally occluded in its proximal portion. b.Left main coronary artery is a normal-sized vessel and is free of stenosis. Divides into left anterior descending coronary artery and circumflex coronary artery. LAD is totally occluded proximally. Circumflex coronary artery shows a focal 90% stenosis. 4. SELECTIVE INJECTION OF THE BYPASS GRAFTS: a.DELGADILLO to LAD appears patent. Proximal and distal anastomotic sites are free of disease. The body of the graft appears normal. b.Venous graft to PDA appears patent. Proximal and distal anastomotic sites are normal. [place] right coronary artery is free of significant disease, and the body of the graft looks normal. c. Venous graft to the OM branch appears patent. CONCLUSIONS: 1. Severe 3-vessel coronary artery disease as described above. 2. Patent DELGADILLO to LAD, patent venous graft to OM, patent venous graft to right coronary artery. PLAN: The patient's management is going to be in the form of medical therapy. His non-STEMI could be related to the ventricular tachycardia and fibrillation. I advised the patient regular followup through my office upon discharge. MMODL / IJN: [id number] /
[2021-10-30] MEDS: PANTOPRAZOLE 40 MG TABLET PO SCH (06:47)
[2021-10-30] MEDS ORDERED: HEPARIN SODIUM,PORCINE 2,500 UNIT in SODIUM CHLORIDE 0.9% 250 ML IRRIGATION PRN (07:00)
[2021-10-30] MEDS ORDERED: HEPARIN SODIUM,PORCINE 10,000 UNIT in SODIUM CHLORIDE 0.9% 1,000 ML IRRIGATION PRN (07:00)
[2021-10-30 07:22] LABS: Basophils # (A) 0.1 k/uL (0-0.2); Basophils % (A) 1 %; Eosinophils # (A) 0.4 k/uL (0-0.7); Eosinophils % (A) 5 %; HGB 15.2 gm/dL (13.0-17.5); Lymphocytes # (A) 1.5 k/uL (1.0-4.8); Lymphocytes % (A) 20 %; MCH 34.8 pg (25.0-35.0); MCV 105.4 fL (80.0-100.0); Macrocytosis Slight; Mean Platelet Volume 8.3; Monocytes # (A) 0.5 k/uL (0-1.0); Monocytes % (A) 7 %; Neutrophils # (A) 4.8 k/uL (1.3-7.7); Neutrophils % (A) 65 %; Platelet Count 182 k/uL (150-450); RBC 4.36 m/uL (4.30-5.90); RDW 12.5 % (11.5-15.5); WBC 7.5 k/uL (3.8-10.6)
[2021-10-30 07:28] LABS: African American GFR (CKD) >90 (>60 ml/min/1.73 sqM); Anion Gap 4 mmol/L; Blood Urea Nitrogen 8 mg/dL (9-20); Calcium 8.7 mg/dL (8.4-10.2); Carbon Dioxide 29 mmol/L (22-30); Chloride 105 mmol/L (98-107); Glucose 86 mg/dL (74-99); Non-African American GFR(CKD) 87 (>60 ml/min/1.73 sqM); Potassium 3.8 mmol/L (3.5-5.1); Sodium 138 mmol/L (137-145)
[2021-10-30 08:46] VITALS: BP 110/71; PULSE 58; RESP 14; TEMP 97
[2021-10-30] MEDS ORDERED: AMIODARONE 200 MG TAB PO SCH (09:00)
[2021-10-30] MEDS ORDERED: SPIRONOLACTONE 25 MG TAB PO SCH (09:00)
[2021-10-30] MEDS: METOPROLOL SUCCINATE (ER) 25 MG TAB.ER.24H PO SCH (09:05)
[2021-10-30] MEDS: ASPIRIN 81 MG PO SCH (09:05)
[2021-10-30] MEDS: ATORVASTATIN 80 MG TAB PO SCH (09:06)
--- NOTE | 2021-10-30 13:24 | P.PN ---
Subjective This is a pleasant 61-year-old male past medical history significant for coronary artery disease s/p CABG in 2005 (DELGADILLO to LAD, VG to obtuse marginal branch of the LCx, VG to distal RCA/PDA), V fib arrest s/p ICD implantation in 2019, hypertension, dyslipidemia, ischemic cardiomyopathy, congestive heart failure . He follows in the office with Dr. So. We have been asked to see in consultation for tachyarrhythmia. Patient presents emergency department after multiple ICD shocks. Patient states he is moving to [place] and was packing at home. He was sitting down and all of a sudden felt shock in his chest. He did endorse some lightheadedness in the morning. Prior to the shock he denies any chest pain, palpitations, shortness of breath, lightheadedness or dizziness. He states he felt his ICD shock him multiple times. He denies any recent changes to his medications or medical history. He continues to smoke 1PPD. 10/29/2021 Patient seen and examined at bedside, he is overall doing well. No complaints. No chest pain or shortness of breath. Device was interrogated that revealed V fib and Vtach with appropriate shocks Echocardiogram revealed an EF of 5 percent He's currently maintained on aspirin 81mg daily, atorvastatin 80 mg daily, IV heparin, metoprolol succinate 12.5 mg daily Patient underwent cardiac catheterization with Dr. So which revealed severe three-vessel coronary artery disease, patent DELGADILLO to LAD, patent venous graft to OM, previous graft to RCA. RCA is totally occluded in the proximal portion, LAD is totally occluded proximally, left circumflex coronary artery shows a focal 90% stenosis. 10/30 Patient seen and examined at bedside, feeling well. Denies any chest pain or shortness of breath. Vital signs are stable. PHYSICAL EXAMINATION Blood pressure 130/60, heart rate 48, afebrile, saturations 95% room air CONSTITUTIONAL: No apparent distress. HEENT: Neck supple, no JVD CHEST EXAMINATION: Lungs are clear to auscultation. No chest wall tenderness is noted on palpation or with deep breathing. HEART EXAMINATION: Regular rate and rhythm. S1, S2 heard. Systolic murmur at base. ABDOMEN: Soft, nontender. Positive bowel sounds. EXTREMITIES: 2+ peripheral pulses, no lower extremity edema and no calf tenderness. SKIN: Right groin site clean, dry, no hematoma. 2+ peripheral pulses NEUROLOGIC EXAMINATION: Patient is awake, alert and oriented x3. ASSESSMENT V fib and Vtach with appropriate ICD shocks Status post cardiac catheterization with patent DELGADILLO to LAD, patent venous graft to OM, previous graft to RCA NSVT Rule out NSTEMI Coronary artery disease s/p CABG in 2005 (DELGADILLO to LAD, VG to obtuse marginal branch of the LCx, VG to distal RCA/PDA) History of V fib arrest s/p ICD implantation in 2019 Hypertension Dyslipidemia Ischemic cardiomyopathy Chronic congestive heart failure with reduced ejection fraction PLAN Start amiodarone taper, start 400mg BID today Continue aspirin, statin, lisinopril, atorvastatin, spironolactone, beta radha From cardiology perspective, patient stable for discharged home today. Follow up outpatient with Dr. So in one week Nurse practitioner note has been reviewed by physician. Signing provider agrees with the documented findings, assessment, and plan of care. Objective - Vital Signs Vital signs: Vital Signs Temp 97.0 F L 10/30/21 08:00 Pulse 58 L 10/30/21 08:00 Resp 14 10/30/21 08:00 BP 110/71 10/30/21 08:00 Pulse Ox 96 10/30/21 08:00 FiO2 Intake & Output 10/29/21 10/30/21 10/30/21 18:59 06:59 18:59 Intake Total 136.702 118 Output Total 200 Balance -63.298 118 Intake: IV 100 Intake, IV Titration 36.702 Amount Heparin Sod,Pork in 0.45% 36.702 NaCl 25,000 unit In 0.45 % NaCl 1 250ml.bag @ 12 UNITS/KG/HR 7.893 mls/hr IV .Q24H [facility] Rx#: [id number] Oral 118 Output: Urine 200 Other: Voiding Method Toilet Toilet Toilet # Voids 1 2 - Labs CBC & Chem 7: 10/30/21 06:43 10/30/21 06:43 Labs: Abnormal Lab Results - Last 24 Hours (Table) 10/30/21 10/30/21 Range/Units 06:43 06:43 MCV 105.4 H (80.0-100.0) fL BUN 8 L (9-20) mg/dL
--- NOTE | 2021-11-01 10:29 | P.DS ---
Providers Date of admission: 10/27/21 19:12 Expected date of discharge: 10/30/21 Attending physician: Abby Woods Consults: 10/27/21 19:12 Consult Physician Urgent Consulting Provider: Filippo Bronson Consult Reason/Comments: Tachyarrhythmia. Do you want consulting provider notified?: Already Contacted Primary care physician: [facility] Course: 61-year-old male past medical history significant for coronary artery disease s/p CABG in 2005 (DELGADILLO to LAD, VG to obtuse marginal branch of the LCx, VG to distal RCA/PDA), V fib arrest s/p ICD implantation in 2019, hypertension, dyslipidemia, ischemic cardiomyopathy, congestive heart failure who presented to the ER because of multiple AICD shocks since yesterday. Patient was in usual state of health yesterday morning when he noticed that his AICD fired after breakfast, it was followed by multiple frequent shocks. During these episodes patient did not have any lightheadedness or dizziness, denied any chest pain or shortness of breath. In total he had 5 shocks followed by another 2 shocks in the afternoon. At that time his friend called EMS and he was brought to the ER of [facility]. Initial troponin was elevated at 3.060, rest of blood work was normal, chest x-ray did not show any acute cardiac process. Patient was started on heparin and was admitted to hospitalist service with cardiology consult. Multiple AICD shocks NSTEMI Coronary artery disease s/p CABG in 2005 (DELGADILLO to LAD, VG to obtuse marginal branch of the LCx, VG to distal RCA/PDA) History of V fib arrest s/p ICD implantation in 2019 Hypertension Dyslipidemia Ischemic cardiomyopathy Chronic congestive heart failure with reduced ejection fraction Plan; Monitor electrolytes. Moderate renal functions Continue to trend troponins. Continue pharmacy to dose heparin Device was interrogated that revealed V fib and Vtach with appropriate shocks Echocardiogram revealed an EF of 5 percent Continue aspirin, Lipitor, Toprol Currently nothing by mouth, going for cardiac catheterization today Follow up in cardiology recommendations DVT prophylaxis: Heparin 10/29. Patient seen and examined. No further episodes of chest pain, no episodes of AICD firing in the last 24 hours. Currently nothing by mouth going for cardiac cath today. Vital signs stable. case discussed with nursing staff 10/30/2021 Start amiodarone taper, start 400mg BID today Continue aspirin, statin, lisinopril, atorvastatin, spironolactone, beta radha From cardiology perspective, patient stable for discharged home today. Follow up outpatient with Dr. So in one week Patient Condition at Discharge: Serious Plan - Discharge Summary Discharge Rx Participant: Yes New Discharge Prescriptions: New Spironolactone [Aldactone] 25 mg PO DAILY #90 tab Aspirin 81 mg PO DAILY #90 tab Amiodarone [Cordarone] 400 mg PO BID #120 tab Nitroglycerin Sl Tabs [Nitrostat] 0.4 mg SUBLINGUAL Q5M PRN #25 tab PRN Reason: Chest Pain lisinopriL [Zestril] 2.5 mg PO DAILY #90 tab Atorvastatin [Lipitor] 80 mg PO DAILY #90 tab Metoprolol Succinate (ER) [Toprol XL] 12.5 mg PO DAILY #60 tab Continue Omeprazole [PriLOSEC] 40 mg PO DAILY Discontinued Metoprolol Succinate (ER) [Toprol Xl] 25 mg PO DAILY Atorvastatin [Lipitor] 40 mg PO DAILY Discharge Medication List Omeprazole [PriLOSEC] 40 mg PO DAILY 10/27/21 [History] Amiodarone [Cordarone] 400 mg PO BID #120 tab 10/30/21 [Rx] Aspirin 81 mg PO DAILY #90 tab 10/30/21 [Rx] Atorvastatin [Lipitor] 80 mg PO DAILY #90 tab 10/30/21 [Rx] Metoprolol Succinate (ER) [Toprol XL] 12.5 mg PO DAILY #60 tab 10/30/21 [Rx] Nitroglycerin Sl Tabs [Nitrostat] 0.4 mg SUBLINGUAL Q5M PRN #25 tab 10/30/21 [Rx] Spironolactone [Aldactone] 25 mg PO DAILY #90 tab 10/30/21 [Rx] lisinopriL [Zestril] 2.5 mg PO DAILY #90 tab 10/30/21 [Rx] Follow up Appointment(s)/Referral(s): None,Stated [REFERRING] - 1-2 days Rafael So MD [STAFF PHYSICIAN] - 11/06/21 1:30 pm Activity/Diet/Wound Care/Special Instructions: Please follow up with Dr. So in 1 week. Please take your medications as prescribed. Amiodarone dose needs to be reduced over time. Amiodarone Instructions: Take 400mg Twice a day for 1 week (10/30-11/05) Take 200mg Twice a day for 1 week (11/06-11/12) Then take 200mg daily starting 11/13 Further changes by your cinder block mason Dr. So Discharge Disposition: HOME SELF-CARE
== END 2021-10-30 11:12 | disposition home or self-care (01) | DRG 280 ==
LOC: EC 16:37 → 3SCARD 19:12
PROVIDERS: ADMIT Hospitalist; ATTEND Hospitalist
PROC: B2111ZZ Fluoroscopy of Multiple Coronary Arteries using Low Osmolar Contrast (ICD-10-PCS; 2021-10-29)
PROC: B2131ZZ Fluoroscopy of Multiple Coronary Artery Bypass Grafts using Low Osmolar Contrast (ICD-10-PCS; 2021-10-29)
PROC: 4A023N7 Measurement of Cardiac Sampling and Pressure, Left Heart, Percutaneous Approach (ICD-10-PCS; principal; 2021-10-29 10:05)
DX: I21.4 Non-ST elevation (NSTEMI) myocardial infarction (principal); I49.01 Ventricular fibrillation; I47.2 Ventricular tachycardia; I50.22 Chronic systolic (congestive) heart failure; E78.5 Hyperlipidemia, unspecified; I11.0 Hypertensive heart disease with heart failure; I25.10 Atherosclerotic heart disease of native coronary artery without angina pectoris; I25.5 Ischemic cardiomyopathy; J44.9 Chronic obstructive pulmonary disease, unspecified; Z95.1 Presence of aortocoronary bypass graft; Z86.74 Personal history of sudden cardiac arrest; Z95.810 Presence of automatic (implantable) cardiac defibrillator; F17.210 Nicotine dependence, cigarettes, uncomplicated; Z79.899 Other long term (current) drug therapy; I25.2 Old myocardial infarction; I49.3 Ventricular premature depolarization; I08.1 Rheumatic disorders of both mitral and tricuspid valves; Z98.890 Other specified postprocedural states
CPT/HCPCS: 36415; 71045; 80048; 80053; 80061; 81001; 83735; 84443; 84484; 85025; 85610; 85730; 93005; 93306; 93459; 96365; 96366; 96368; 96375; 99285